=== PATIENT | male | born 2000 | race Caucasian/White ===

== ENCOUNTER 2022-12-15 14:42 | Emergency (ER) | payer OTHER ==
[~2022-12-15] VITALS: Ht 170.2 cm; Wt 88.5 kg
[~2022-12-15 14:42] MED LIST: AZIT200SU PO; BACITO TP; CODACEE120 PO
[2022-12-15 15:09] LABS: BASOPHILS ABSOLUTE AUTO 0.05 K/mm3 (0.00-0.23); BASOPHILS PERCENT AUTO 0 % (0-2); EOSINOPHILS ABSOLUTE AUTO 0.06 K/mm3 (0.00-0.68); EOSINOPHILS PERCENT AUTO 1 % (0-6); Hematocrit 40.7 % (37.0-53.0); Hemoglobin 13.8 g/dL (13.5-17.5); IMMATURE GRAN ABSOLUTE AUTO 0.06 K/mm3 (0.00-0.10); IMMATURE GRAN PERCENT AUTO 1 % (0-1); LYMPHOCYTES ABSOLUTE AUTO 0.95 K/mm3 (0.84-5.20); LYMPHOCYTES PERCENT AUTO 8 % (21-46); MONOCYTES ABSOLUTE AUTO 0.76 K/mm3 (0.16-1.47); MONOCYTES PERCENT AUTO 6 % (4-13); Mean Corpuscular HGB 27.1 pg (26.0-34.0); Mean Corpuscular HGB Conc 33.9 g/dL (31.5-36.5); Mean Corpuscular Volume 80 fL (80-100); Mean Platelet Volume 9.7 fL (9.1-12.4); NEUTROPHILS ABSOLUTE AUTO 10.02 K/mm3 (1.96-9.15); NEUTROPHILS PERCENT AUTO 84 % (41-73); Platelet Count 247 K/mm3 (150-400); RDW Coefficient Variation 13.2 % (11.7-14.2); RDW Standard Deviation 38.4 fL (35.1-46.3)
[2022-12-15 16:10] LABS: Albumin, Blood 4.4 g/dL (3.4-5.0); Albumin/Globulin Ratio 1.3 (0.8-1.8); Bilirubin, Total 1.2 mg/dL (0.1-1.0); Bun/Creatinine Ratio 14.6 (12.0-20.0); Calcium, Blood 9.4 mg/dL (8.5-10.1); Creatinine, Blood 0.89 mg/dL (0.60-1.20); Globulin, Blood 3.4 g/dL (2.2-4.0); Potassium, Blood 3.4 mmol/L (3.5-5.5); Total Protein, Blood 7.8 g/dL (6.4-8.2)
[2022-12-15 17:30] VITALS: BP 141/75
[2022-12-15] MEDS ORDERED: ONDA4ODT MM (17:59)
[2022-12-15] MEDS ORDERED: IBUP800 PO (17:59)
== END 2022-12-15 18:34 | disposition home or self-care (01) ==
LOC: ER 14:42
PROVIDERS: Emergency Medicine
DX: N13.2 Hydronephrosis with renal and ureteral calculous obstruction (principal)
CPT/HCPCS: 74177; 80053; 83690; 83735; 85025; 96361; 96374; 96375; 96376; 99284-25; J0780; J1170; J1885; J2405; J7030; Q9967

== ENCOUNTER 2023-02-21 04:12 | Emergency (ER) | payer OTHER ==
[~2023-02-21] VITALS: Ht 175.3 cm; Wt 95.2 kg
[~2023-02-21 04:12] MED LIST changes: +IBUP800 PO; +ONDA4ODT MM
[2023-02-21 05:45] VITALS: BP 112/81
[2023-02-21] MEDS ORDERED: ACET500 PO (05:47)
[2023-02-21] MEDS ORDERED: Ibuprofen600 MG PO (05:47)
== END 2023-02-21 05:55 | disposition home or self-care (01) ==
LOC: ER 04:12
DX: S01.01XA Laceration without foreign body of scalp, initial encounter (principal); W22.8XXA Striking against or struck by other objects, initial encounter
CPT/HCPCS: 12002; 99282-25

== ENCOUNTER 2023-05-17 04:21 | Emergency (ER) | payer OTHER ==
[~2023-05-17] VITALS: Ht 180.3 cm; Wt 77.1 kg
[~2023-05-17 04:21] MED LIST changes: +ACET500 PO; +Ibuprofen600 MG PO
[2023-05-17] MEDS ORDERED: CEPH500 PO (07:13)
[2023-05-17 07:30] VITALS: BP 124/76
== END 2023-05-17 07:33 | disposition home or self-care (01) ==
LOC: ER 04:21
DX: S67.193A Crushing injury of left middle finger, initial encounter (principal); S61.313A Laceration without foreign body of left middle finger with damage to nail, initial encounter; W22.8XXA Striking against or struck by other objects, initial encounter; Y99.0 Civilian activity done for income or pay
CPT/HCPCS: 11740; 73140; 99283-25